=== PATIENT | male | born 1975 | race Caucasian/White ===

== ENCOUNTER 2018-05-03 07:21 | Emergency (ER) | payer BC, SELFPAY ==
[2018-05-03 07:27] VITALS: BP 136/82; PULSE 81; RESP 16; TEMP 37; O2SAT 97
[2018-05-03] MEDS: Normal Saline 1,000 ML 1000 ML IV ×2 (07:40→08:50)
--- NOTE | 2018-05-03 07:41 | ED.GENADUL_ITS ---
Discharge Plan Disposition Patient Disposition: HOME Condition: Stable Discharge Details Chief Complaint: FlankPain Clinical Impression: Flank pain, Dehydration Primary Care Provider: None,None ED Provider: Leah Holbrook Home Meds and New Rx's Prescriptions: No Action No Known Home Meds RF: 0 Discharge Instructions Instructions: Dehydration (ED), Flank Pain (ED) Additional Instructions: Please return immediately to the emergency department if you develop any new or worsening symptoms or if you become otherwise concerned. It is extremely important that you make an appointment to be seen in follow-up for this visit as soon as possible by your primary care doctor. Please be sure to drink plenty of fluids. It was a pleasure participating your care today. Discharge Data Discharge Date/Time-TO BE ENTERED AT DEPARTURE: 05/03/18 12:29 Medical Decision Making Jony Hyatt is a 42-year-old man without history of major medical problems presenting to the emergency department with right flank pain for 2 days, has not urinated much since yesterday morning. On exam he is well and nontoxic appear ing, appears comfortable. Positive CVA tenderness on the right. No abdominal tenderness palpation. Concern for pyelonephritis versus kidney stone versus bladder obstruction versus other. Exam/history not consistent with acute aortic process, appendicitis, testicular etiology, other acute emergent intra-abdominal process. Plan for screening labs, bladder scan, UA, CT renal colic, IV fluid hydration, IV opiate pain medication. Bladder scan performed by nursing, shows approximately 280 cc. Feels improved after pain meds. UA negative. CT negative. Discussed with patient negative results, unclear etiology of pain at this time. I did discuss with patient that initial CT was without contrast, and some emergent diagnoses may be missed on noncontrast CT. However I have low suspicion for other acute emergent etiologies. It is likely muscular. He does not wish to have further imaging performed. In setting of mild flank pain with negative UA, benign overall physical exam is benign abdomen, I do think discharge to home with return to emergency department for worsening symptoms is a reasonable course of action at this time. I had a lengthy discussion with the patient regarding return to emergency department precautions and importance of outpatient follow- up with his primary care doctor as soon as possible. Patient verbalized understanding of the plan and is amenable. Medical Records Medical records reviewed: Yes I reviewed the patient's medical records. Imaging Data Radiologic Study: Attestation: I personally reviewed and interpreted this imaging study as follows: Radiologist's impression: NONCONTRAST CT ABDOMEN AND PELVIS: No renal calculi or hydronephrosis is seen. The bladder and prostate are unremarkable. There is fatty infiltration of the liver. The gallbladder, pancreas, spleen and adrenals are unremarkable. The appendix appears normal. There are a few scattered diverticula. There is no evidence of diverticulitis. Small bowel is unremarkable. IMPRESSION: Incidental fatty liver. No urinary tract calculi or hydronephrosis. Lab Data Lab results reviewed: Yes I reviewed the patient's lab results. Laboratory Tests Range/Units 05/03/18 05/03/18 05/03/18 07:29 07:40 07:40 WBC (4.4-10.8) k/cumm 10.10 RBC (4.50-6.00) m/cumm 4.82 Hgb (13.5-17.5) g/dL 14.3 Hct (40.0-50.0) % 42.5 MCV (80-95) fL 88.2 MCH (27.0-33.0) pg 29.7 MCHC (32.0-36.0) g/dL 33.6 RDW (11.8-14.1) % 12.9 Plt Count (130-400) x1000/uL 253 MPV (8.0-11.0) fL 10.7 Immature Gran % 0.2 Neutrophils % 65.7 Lymphocytes % 24.9 Monocytes % 7.4 Eosinophils % 1.5 Basophils % 0.3 Absolute Neutrophils (1.2-6.7) k/cumm 6.64 Absolute Lymphocytes (1.2-3.4) k/cumm 2.51 Absolute Monocytes (0.11-0.7) k/cumm 0.75 H Absolute Eosinophils (0.0-0.7) k/cumm 0.15 Absolute Basophils (0.0-0.2) k/cumm 0.03 Sodium (136-145) mmol/L 146 H Potassium (3.5-5.1) mmol/L 4.2 Chloride (98-107) mmol/L 107 Carbon Dioxide (21.0-32.0) mmol/L 31.2 Anion Gap (3-11) mmol/L 7.8 BUN (7-18) mg/dL 14 Creatinine (0.70-1.30) mg/dL 1.24 Estimated GFR/1.73 m2 (mL/min/1.73m2) >= 60.00 Glucose (70-100) mg/dL 107 H Calcium (8.5-10.1) mg/dL 9.2 Total Bilirubin (0.2-1.0) mg/dL 0.5 AST (15-37) U/L 14 L ALT (12-78) U/L 34 Alkaline Phosphatase (46-116) U/L 50 Total Protein (6.4-8.2) g/dL 7.8 Albumin (3.4-5.0) g/dL 3.9 Urine Color (Yellow) Yellow Urine Clarity Clear Urine pH (5-8) 6.0 Ur Specific [place] (1.005-1.025) >= 1.030 H Urine Protein (Negative) mg/dL Negative Urine Ketones (Negative) mg/dL Negative Urine Blood (Negative) Negative Urine Nitrite (Negative) Negative Urine Bilirubin (Negative) Negative Urine Urobilinogen (Up TO 0.2) EU/dL 0.2 Ur Leukocyte Esterase (Negative) Negative Urine Glucose (Negative) mg/dL Negative HPI General Mode of arrival: ambulatory . Date/Time Provider Initiated Documentation: 05/03/18 07:41 . Limitations to Documentation: no limitations . Information obtained by: patient, RN notes reviewed and old records reviewed . HPI Narrative: Jony Hyatt is a 42 y/o man without history of major medical problems presenting to the emergency department with flank pain. Patient reports that 2 days ago he developed right-sided flank pain that does not radiate. He reports that pain has been constant and gradually worsening. Patient reports that he does not drink he has urinated since yesterday morning. Has been eating and drinking as usual. He denies having any other pain, fevers, shortness of breath, cough, vomiting, diarrhea, lightheadedness, or dysuria. He reports that he felt as if he had to strain to make enough urine for urine sample in the emergency department this morning. This is not typical for him. Has never had similar symptoms in the past. No history of kidney stones. Has not taken any medication for pain at home. Related Data Home Medications Medication Instructions Recorded Confirmed Unknown [No Known Home Meds] 05/03/18 05/03/18 Allergies Allergy/AdvReac Type Severity Reaction Status Date / Time No Known Allergies Allergy Unverified 05/03/18 07:33 General Stated Complaint: FlankPain MATT: 3 Review of Systems Review of Systems Constitutional: denies fevers Eyes: denies eye pain ENT: denies facial pain, dental pain, sore throat Cardiovascular: denies chest pain, edema Respiratory: denies SOB, cough GI: denies abdominal pain, vomiting, diarrhea : reports flank pain, denies dysuria, testicular pain MSK: denies back pain, neck pain, arthralgias, myalgias Skin: denies rash Neuro: denies headaches, numbness, weakness Exam Narrative Exam Narrative: Constitutional: well and [id number], pleasant, conversing normally HENT: head atraumatic, normocephalic normal inspection, mucous membranes moist Eyes: conjunctiva normal, sclera normal, pupils 3mm b/l Neck: no stridor, normal ROM, trachea midline Chest: normal inspection Resp: normal work of breathing, LCTAB Cardio: normal rate, normal rhythm, no murmur appreciated GI: abdomen soft, non-tender, non-distended, positive CVA tenderness on the right, no CVA tenderness on the left Back: normal inspection, no rash Skin: warm, dry, normal color, no rash Neuro: alert, not altered, grossly non-focal, normal tone Ext: no edema Psych: normal mood, normal affect, normal behavior Course Vital Signs Temperature 37 C 05/03/18 07:27 Pulse 81 05/03/18 07:27 Respiratory Rate 16 05/03/18 07:27 Blood Pressure 136/82 05/03/18 07:27 Pulse Oximetry 97 05/03/18 07:27 Temperature 37 C 05/03/18 07:27 Temperature Source Skin 05/03/18 07:27 Pulse 81 05/03/18 07:27 Respiratory Rate 16 05/03/18 07:27 Respiratory Effort Non-Labored 05/03/18 07:27 Blood Pressure 136/82 05/03/18 07:27 Blood Pressure Position Sitting 05/03/18 07:27 Pulse Oximetry 97 05/03/18 07:27 Pain Level 8 05/03/18 07:27
--- NOTE | 2018-05-03 08:02 | DI.CT_ITS ---
SYMPTOM/DIAGNOSIS: RIGHT FLANK PAIN NONCONTRAST CT ABDOMEN AND PELVIS: No renal calculi or hydronephrosis is seen. The bladder and prostate are unremarkable. There is fatty infiltration of the liver. The gallbladder, pancreas, spleen and adrenals are unremarkable. The appendix appears normal. There are a few scattered diverticula. There is no evidence of diverticulitis. Small bowel is unremarkable. IMPRESSION: Incidental fatty liver. No urinary tract calculi or hydronephrosis.
[2018-05-03 08:27] LABS: Abs Immature Grans 0.02 k/cumm (0.0-0.09); Absolute Basophil Count 0.03 k/cumm (0.0-0.2); Absolute Eosinophil Count 0.15 k/cumm (0.0-0.7); Absolute Lymphocyte Count 2.51 k/cumm (1.2-3.4); Absolute Monocyte Count 0.75 k/cumm (0.11-0.7); Absolute Neutrophil Count 6.64 k/cumm (1.2-6.7); Basophils % 0.3; Eosinophils % 1.5; HCT 42.5 % (40.0-50.0); HGB 14.3 g/dL (13.5-17.5); Immature Grans % 0.2; Lymphocytes % 24.9; Mean Corp. HGB Concentration 33.6 g/dL (32.0-36.0); Mean Corpuscular Hemoglobin 29.7 pg (27.0-33.0); Mean Corpuscular Volume 88.2 fL (80-95); Mean Platelet Volume 10.7 fL (8.0-11.0); Monocytes % 7.4; Neutrophils % 65.7; Platelet Count 253 x1000/uL (130-400); RBC 4.82 m/cumm (4.50-6.00); RBC Distribution Width 12.9 % (11.8-14.1)
[2018-05-03 08:35] LABS: ALT 34 U/L (12-78); AST 14 U/L (15-37); Albumin 3.9 g/dL (3.4-5.0); Alkaline Phosphatase 50 U/L (46-116); BUN 14 mg/dL (7-18); Bilirubin, Total 0.5 mg/dL (0.2-1.0); CO2 31.2 mmol/L (21.0-32.0); CREATININE 1.24 mg/dL (0.70-1.30); Calcium 9.2 mg/dL (8.5-10.1); Glucose 107 mg/dL (70-100); Total Protein 7.8 g/dL (6.4-8.2)
[2018-05-03 08:38] LABS: Anion Gap 7.8 mmol/L (3-11); Chloride 107 mmol/L (98-107); Potassium 4.2 mmol/L (3.5-5.1); Sodium 146 mmol/L (136-145)
[2018-05-03 08:44] LABS: Bilirubin Negative (Negative); Blood Negative (Negative); Clarity Clear; Glucose Negative (Negative); Ketones Negative (Negative); Leukocyte Esterase Negative (Negative); Nitrite Negative (Negative); Specific Gravity >= 1.030 (1.005-1.025); Urobilinogen 0.2 EU/dL (Up TO 0.2)
[2018-05-03] MEDS: HYDROmorphone 2 MG/ML VIAL 0.5 MG IVP (11:45)
[2018-05-03 12:29] VITALS: BP 124/85; PULSE 82; RESP 16; TEMP 37; O2SAT 95
== END 2018-05-03 12:29 | disposition home or self-care (01) ==
PROVIDERS: Emergency Provider Student in an Organized Health Care Education/Training Program
DX: R10.9 Unspecified abdominal pain (principal); E86.0 Dehydration
CPT/HCPCS: 36415; 80053; 96361; 96374; 96376; 99284; 74176; 81003; 85025